=== PATIENT | male | born 1950 ===

== ENCOUNTER 2025-03-16 20:02 | Emergency (ER) | payer MEDICARE ==
[2025-03-16] MEDS: Amoxicillin/Clavulanate K 875-125 MG Tab PO ONE (20:44)
== END 2025-03-16 20:41 | disposition home or self-care (01) ==
LOC: DL.ED 20:02
DX: A28.0 Pasteurellosis (principal); L03.113 Cellulitis of right upper limb; W55.01XD Bitten by cat, subsequent encounter
CPT/HCPCS: 99283; A9270